=== PATIENT | female | born 1985 | race Hispanic/Latino ===

== ENCOUNTER 2023-12-14 07:45 | Emergency (ER) | payer BC ==
[~2023-12-14] VITALS: Ht 157.5 cm; Wt 95.9 kg
[2023-12-14] MEDS ORDERED: IBUPROFEN200 MG PO (08:07)
[2023-12-14] MEDS ORDERED: DIPHENHYDRAMINE25 M2 PO (08:07)
[2023-12-14] MEDS: ACETAMINOPHEN 325 MG TAB PO ONE (08:07)
[2023-12-14] MEDS ORDERED: ESGIC 50-325-41 EACH PO (08:07)
[2023-12-14] MEDS ORDERED: LEVOTHYROXINE50 MCG PO (08:30)
[2023-12-14 08:59] VITALS: PULSE 77; RESP 16; TEMP 98.6; O2SAT 98
== END 2023-12-14 08:59 | disposition home or self-care (01) ==
LOC: FSED 07:52
DX: R05.9 Cough, unspecified (principal); G44.209 Tension-type headache, unspecified, not intractable; M54.2 Cervicalgia; E03.9 Hypothyroidism, unspecified
CPT/HCPCS: 71046; 81003; 81025; 99283